=== PATIENT | male | born 1970 | race Caucasian/White ===

== ENCOUNTER 2024-03-12 00:46 | Emergency (ER) | payer BC, SELFPAY ==
[2024-03-12 00:51] VITALS: BP 117/75; PULSE 80; TEMP 36.6; O2SAT 99; BMI 26.3
[2024-03-12 01:23] LABS: Internal Control Within Normal Limits; SARS-CoV-2 Ag NEGATIVE (NEGATIVE)
--- NOTE | 2024-03-12 01:46 | ED_ITS ---
HPI - URI/Sore Throat General Chief Complaint: Upper Respiratory Infection Stated Complaint: congestion covid exposure Time Seen by Provider: 03/12/24 00:56 Source: patient Limitations: no limitations History of Present Illness HPI Narrative: This 54-year-old male with a history of coronary artery disease who no longer smokes presents for evaluation of 4 days of facial pain and pressure in his ears. He was recently exposed to COVID-19 at work. He has not had a fever or cough. He denies any chest pain or shortness of breath. He states that he feels like the pressure in his ears is getting worse. It was formally just on the left side but now it is also involving the right side. He has not had any drainage from his ears. He denies any abdominal pain. 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 He also recently had some left-sided dental work and is concerned that this may be causing some of the pressure in the left side of his face. He is not having any dental pain at this time. Related Data Allergies Allergy/AdvReac Type Severity Reaction Status Date / Time diphenhydramine Allergy Severe angioedema Verified 03/12/24 00:56 [From Birgit] Review of Systems ROS Status of ROS 10 or more systems reviewed and unremark able except as noted in history and below Exam Narrative Exam Narrative: Vital signs and Nursing Notes reviewed: Patient is afebrile with a normal pulse, normal blood pressure, he is not hypoxic with pulse ox of 99% on room air General: Awake, alert, oriented, no acute distress, lying comfortably on the stretcher HEENT: Normocephalic atraumatic, mucous membranes are moist and pink, eyes are clear, normal conjunctiva, vision is grossly intact, posterior pharynx is normal in appearance. Tympanic membranes are obstructed by cerumen bilaterally Neck: Supple, no meningeal signs, no anterior or posterior cervical lymphadenopathy Chest: Lungs are clear to auscultation with good air entry, there is no wheezing rhonchi or rales appreciated no accessory muscle use, patient is speaking in complete sentences-no chest wall tenderness to palpation CVS: Regular rate and rhythm S1-S2, no murmurs rubs or gallops, pulses are brisk and equal bilaterally ABD: Soft, nondistended, nontender, no rebound guarding or rigidity, bowel sounds are normal, no pulsatile masses appreciated Extremities: Moving all extremities, no lower extremity tenderness or swelling noted, negative Homans' sign, pulses are brisk and equal bilaterally Skin: Normal in appearance without rash,pallor, petechiae or purpura Neuro: No focal deficits Constitutional Vital Signs, click to edit/add: Last Vital Signs Temp 97.9 F 03/12/24 00:51 Pulse 80 03/12/24 00:51 Resp 18 03/12/24 00:51 BP 117/75 03/12/24 00:51 Pulse Ox 99 03/12/24 00:51 O2 Del Method Room Air 03/12/24 00:51 Course Vital Signs Vital signs: Vital Signs Temperature 97.9 F 03/12/24 00:51 Pulse Rate 80 03/12/24 00:51 Respiratory Rate 18 03/12/24 00:51 Blood Pressure 117/75 03/12/24 00:51 Pulse Oximetry 99 03/12/24 00:51 Oxygen Delivery Method Room Air 03/12/24 00:51 Temperature 97.9 F 03/12/24 00:51 Pulse Rate 80 03/12/24 00:51 Respiratory Rate 18 03/12/24 00:51 Blood Pressure 117/75 03/12/24 00:51 Pulse Oximetry 99 03/12/24 00:51 Oxygen Delivery Method Room Air 03/12/24 00:51 MDM - URI/Sore Throat MDM Narrative Medical decision making narrative: This 54-year-old male with a history of heart disease who is on Plavix presents for evaluation of pressure and discomfort in the left side of his face and frontal sinuses and states that he has fluid in his ears. He also recently had dental work and is concerned that he may have an ascending infection from the dental work. He has not had a fever but was exposed to COVID-19 at work. He is not having any chest pain or shortness of breath. His lungs are clear, abdomen is soft, he does not smoke. His COVID-19 test was negative. Both tympanic membranes were obscured by cerumen. The remainder of his exam was benign. He was very anxious and adamant that he needed antibiotics after the dental work that he had done and his heart disease. He has not taken any decongestants and was given a dose of Mucinex and amoxicillin emergency department. I explained to him that he will need to have his ears irrigated and he was provided with a prescription for a Debrox kit. I explained how to use it and he states that his should be able to help him with that at home. He is otherwise stable for discharge. Lab Data Labs: Lab Results 03/12/24 Range/Units 00:58 SARS-CoV-2 Ag (CV2AG) Negative (NEGATIVE) Discharge Plan Discharge Stand Alone Forms: Work/School Release, Portal Instructions Chief Complaint: Upper Respiratory Infection Clinical Impression: Sinusitis, Cerumen impaction Patient Disposition: Home, Self-Care Time of Disposition Decision: 01:44 Condition: Good Print Language: Tam[place] Instructions: Triethanolamine Polypeptide Oleate (Into the ear) (Cerumenex), Sinusitis (ED) Referrals: UNIQUE MIGUEL [Primary Care Provider] - 1 week
[2024-03-12] MEDS: AMOXICILLIN 500 MG CAPSULE PO (02:03)
[2024-03-12] MEDS: GUAIFENESIN 600 MG TAB.ER.12H PO (02:03)
[2024-03-12 02:05] VITALS: BP 125/80; PULSE 81; O2SAT 99
== END 2024-03-12 02:05 | disposition home or self-care (01) ==
PROVIDERS: Emergency Provider Emergency Medicine; PCP Family Medicine
DX: J32.9 Chronic sinusitis, unspecified (principal); H61.23 Impacted cerumen, bilateral; I25.10 Atherosclerotic heart disease of native coronary artery without angina pectoris; Z87.891 Personal history of nicotine dependence; Z86.74 Personal history of sudden cardiac arrest; Z95.810 Presence of automatic (implantable) cardiac defibrillator; Z20.822 Contact with and (suspected) exposure to COVID-19; Z79.02 Long term (current) use of antithrombotics/antiplatelets
CPT/HCPCS: 87811; 99283